=== PATIENT | female | born 1995 | race Two or more races ===

== ENCOUNTER 2018-07-17 17:19 | Inpatient (IN) | payer OTHER ==
--- OUTSIDE RECORDS SUMMARY | 2018-07-17 17:45 | XMS REPORT | Continuity of Care Document ---
:1995 External Reference #:[id number] Author Name Chris Munoz M.D. Address [address] [place] [address] Care Team Providers Name Role Phone [facility] Care Team Information Lyft Driver Unavailable [facility] Primary Care Physician Unavailable Payers Type Date Identification Numbers Payment Provider Subscriber Policy Number: [id number] Frederick Moran PayID: [id number] [address] [place] [address] Advance Directives Description No Information Available Problems Description No Information Family History Date Family Member(s) Problem(s) Comments Father Torn Retina Mother No Current Problems Mother High BP Social History Type Date Description Comments Sex Unknown ETOH Use Occasionally consumes hasnt the last 2 months alcohol Tobacco Use Start: Unknown Patient has never smoked Smoking Status Reviewed: 07/17/18 Patient has never smoked Allergies, Adverse Reactions, Alerts Description No Known Drug Allergies Medications Medication Date Status Form Strength Qnty SIG Indications Ordering Provider Sertraline HCL 0 Active Tablets 100mg Unknown 000 Colace 0 Active Capsules 100mg Unknown 000 Vitamin D Active Tablets 1000Unit take one Unknown 000 capsule/t ablet daily by mouth Calcium 500+D 0 Active Tablets 500-200mg-U Unknown 000 nit Probiotic 0 Active Capsules as needed Unknown 000 Immunizations Description No Information Available Vital Signs Date Vital Result Comment 07/17/2018 3:10pm Intraocular Pressure Right Eye 13 mmHg Intraocular Pressure Left Eye 12 mmHg Results Description No Information Available Procedures Date Code Description Status 07/17/2018 28907 Ophthalmoscopy Initial Completed 07/17/2018 58832 Oct, Optic Nerve Completed 07/17/2018 05721 Visual Field Exam Extended, Unilateral Or Bilateral Completed 07/17/2018 04133 Sensorimotor Examination W/Mult Measurements Ocular Completed Deviation 07/17/2018 91421 Eye Exam New Comprehensive Completed Encounters Description No Information Available Plan of Treatment No Information Available
[2018-07-17 18:31] LABS: Hematocrit 44 % (35-47); Hemoglobin 14.7 g/dl (12.0-16.0); Mean Corpuscular HGB Conc 34 g/dl (31-36); Mean Corpuscular Hemoglobin 29 pg (27-31); Mean Corpuscular Volume 85 fL (80-97); Mean Platelet Volume 7.8 fL (7.4-10.4); Platelet Count 303 10^3/ul (150-450); Red Blood Count 5.16 10^6/ul (4.00-5.40); Red Cell Distribution Width 15 % (10.5-15); White Blood Count 9.4 10^3/ul (3.5-10.8)
--- NOTE | 2018-07-17 18:42 | ED ---
Dizziness - HPI Summary HPI Summary: The pt is a 22 y/[facility]o intermittent diplopia since yesterday. She notes HAs (since 2 months ago) , dizziness (for 1 week), tinnitus (resolved), light sensitivity, mild back pain, neck pain and unstable gait. She was referred by her neurologist and drill hand to the ED for an admission to r/o a pseudo tumor. She denies PE, blood clots and ear pressure. The aching pain is rated 4/10 in severity. She took Tylenol and Meclizine at09: 00 hrs to no relief. Home Medications Medication Instructions Recorded Confirmed Type Calcium Carb/Vitamin D3/Vit K1 3 tab PO DAILY 09/20/16 04/19/18 History [Viactiv 500-500-40 mg-Unt-Mcg] Cholecalciferol TAB* [Vitamin D 2,000 unit PO DAILY 09/20/16 04/19/18 History TAB*] Docusate CAP* [Colace Cap*] 100 mg PO DAILY 09/20/16 04/19/18 History L. Acidophilus/L. Bifidus 1 tab PO TID 09/20/16 04/19/18 History [Acidophilus-Bifidus Wafer] Mesalamine CAP(NF) [Pentasa(NF)] 4 tab PO BID 09/20/16 04/19/18 History Omeprazole CAP* [Prilosec CAP* 20 20 mg PO DAILY 09/20/16 04/19/18 History MG] Sertraline* [Zoloft*] 100 mg PO DAILY 09/20/16 04/19/18 History Norethindrone AC-Eth Estradiol 1 tab PO DAILY 04/19/18 04/19/18 History [08/27] - History Of Current Complaint Chief Complaint: EDDizziness Stated Complaint: HEADACHE/DOUBLE VISION Time Seen by Provider: 07/17/18 18:28 Hx Obtained From: Patient Onset/Duration: Gradually Timing: Constant Character: Dizzy Aggravating Factor(s): Nothing Alleviating Factor(s): Nothing Associated Signs And Symptoms: Positive: Tinnitus, Unsteady Gait, Visual Changes - Allergies/Home Medications Allergies/Adverse Reactions: Allergies Allergy/AdvReac Type Severity Reaction Status Date / Time No Known Allergies Allergy Verified 05/30/18 13:19 PMH/Surg Hx/FS Hx/Imm Hx Previously Healthy: No Endocrine/Hematology History: Denies: Hx Diabetes Cardiovascular History: Reports: Other Cardiovascular Problems/Disorders - Hx of Marian's granulomytosis, Denies: Hx Hypertension, Hx Pacemaker/ICD History: Denies: Hx Renal Disease Sensory History: Denies: Hx Hearing Aid Psychiatric History: Reports: Hx Anxiety Denies: Hx Panic Disorder - Cancer History Cancer Type, Location and Year: None reported - Surgical History Surgery Procedure, Year, and Place: LYMPH NODE REMOVED, 05/20 CYST ON EAR, 06/21 CYST ON NECK, 11/21 CYST. Infectious Disease History: No Infectious Disease History: Denies: Traveled Outside the [place] in Last 30 Days - Family History Known Family History: Negative: Cardiac Disease, Hypertension, Diabetes - Social History Occupation: Student Lives: Dormitory/Roommates Alcohol Use: Rare Substance Use Type: Reports: None Smoking Status (MU): Never Smoked Tobacco Review of Systems Constitutional: Other - Positive: Dizziness,unstable gait Eyes: Negative - Ear pressure Positive: Photophobia, Diplopia, Other - Positive: Tinnitus, light sensitivity ENT: Other - Positive: Neck pain Cardiovascular: Negative - Blood clots Musculoskeletal: Other - Positive: Mild back pain Positive: Headache All Other Systems Reviewed And Are Negative: Yes Physical Exam - Summary Physical Exam Summary: Constitutional: Well-developed, Well-nourished, Alert. (-) Distressed Skin: Warm, Dry HENT: Normocephalic; Atraumatic Eyes: Conjunctiva normal. Funduscopic exam is limited Neck: Musculoskeletal ROM normal neck. (-) JVD, (-) Stridor, (-) Tracheal deviation Cardio: Rhythm regular, rate normal, Heart sounds normal; Intact distal pulses; The pedal pulses are 2+ and symmetric. Radial pulses are 2+ and symmetric. (-) Murmur Pulmonary/Chest wall: Effort normal. (-) Respiratory distress, (-) Wheezes, (-) Rales Abd: Soft, (-) epigastric tenderness, (-) Distension, (-) Guarding, (-) Rebound Musculoskeletal: (-) Edema Lymph: (-) Cervical adenopathy Neuro: Alert, Oriented x3 Psych: Mood and affect Normal Triage Information Reviewed: Yes Vital Signs On Initial Exam: Initial Vitals Temp Pulse Resp BP Pulse Ox 98.8 F 84 16 143/89 98 12/10/18 17:25 07/17/18 17:25 07/17/18 17:25 07/17/18 17:25 07/17/18 17:25 Vital Signs Reviewed: Yes Diagnostics - Vital Signs Vital Signs Temp Pulse Resp BP Pulse Ox 07/17/18 17:25 98.8 F 84 16 143/89 98 - Laboratory Lab Results: Lab Results 07/17/18 Range/Units 18:16 WBC 9.4 (3.5-10.8) 10^3/ul RBC 5.16 (4.00-5.40) 10^6/ul Hgb 14.7 (12.0-16.0) g/dl Hct 44 (35-47) % MCV 85 (80-97) fL MCH 29 (27-31) pg MCHC 34 (31-36) g/dl RDW 15 (10.5-15) % Plt Count 303 (150-450) 10^3/ul MPV 7.8 (7.4-10.4) fL Result Diagrams: 07/18/18 05:58 07/18/18 05:58 Lab Statement: Any lab studies that have been ordered have been reviewed, and results considered in the medical decision making process. - Radiology Head MRI Radiology Interpretation Completed By: Radiologist Summary of Radiographic Findings: IMPRESSION: Normal anatomic asymmetry versus thrombus left transverse sinus. Remaining dural sinuses are normal. The ED physician reviewed this radiology report. Brain/Orbits MRI Radiology Interpretation Completed By: Radiologist Summary of Radiographic Findings: IMPRESSION: Ectopic posterior pituitary lobe. No masses or acute infarcts. The ED physician reviewed this radiology report. Dizzy Course/Dx - Course Course Of Treatment: A 22 year-old F presents to the ED with a CC of intermittent diplopia since yesterday. She notes HAs (since 2 months ago) , dizziness ( for 1 week), tinnitus (resolved), light sensitivity, mild back pain , neck pain and unstable gait. She was referred by her neurologist and drill hand to the ED for an admission to r/o a pseudo tumor. She denies PE , blood clots and ear pressure. A physical exam is unremarkable. A funduscopic exam is limited. A brain MRI reveals normal anatomic asymmetry versus thrombus left transverse sinus. Remaining dural sinuses are normal. 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 No masses or acute infarcts. Dr. Lanie Pérez- hospitalist agreed to admit the pt. Patient will be admitted with a final Dx of papillary edema. Pt is agreeable with this plan. Allergies noted. - Diagnoses Provider Diagnoses: Optic papilla edema - Provider Notifications Discussed Care Of Patient With: Carol Ann Campos - Neurologist Time Discussed With Above Provider: 18:35 Instructed by Provider To: Other - Dr. Campos recommended that the lumbar punctures be done in the morning as it could obscure the images given the subacute nature of the complaint. 19:20- Dr. Lanie Pérez, agreed to admit the pt. 20:48- Dr. Marquez (radiologist) reports that imaging revealed asymmetry of the venous sinuses. Discharge - Sign-Out/Discharge Documenting (check all that apply): Patient Departure - Admit All imaging exams completed and their final reports reviewed: Yes - Discharge Plan Condition: Stable Disposition: ADMITTED TO [facility] - Billing Disposition and Condition Condition: STABLE Disposition: Admitted to [facility] - Attestation Statements Document Initiated by Janiee: Yes Documenting Scribe: Katie Carbone Provider For Whom Fadumo is Documenting (Include Credential): Dr. Joseph Ashford MD Scribe Attestation: Katie Reynolds , scribed for Dr. Joseph Ashford MD on 07/19/18 at 1131. Scribe Documentation Reviewed: Yes Provider Attestation: The documentation as recorded by the Katie anderson accurately reflects the service I personally performed and the decisions made by , Dr. Joseph Ashford MD Status of Scribe Document: Viewed
[2018-07-17 18:55] LABS: EGFR Non-African American 127.5 (>60)
[2018-07-17] MEDS ORDERED: Melatonin 3 MG TAB PO PRN (20:01)
[2018-07-17 20:07] LABS: Urine Appearance Cloudy; Urine Blood Negative (Negative); Urine Color Straw; Urine Ketones Negative (Negative); Urine Protein Negative (Negative); Urine Red Blood Cell Trace(0-2/hpf) (Absent); Urine Specific Gravity 1.005 (1.010-1.030); Urine Urobilinogen Negative (Negative); Urine White Blood Cell Trace(0-5/hpf) (Absent)
--- NOTE | 2018-07-17 20:07 | ADMNOTE ---
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 pt has chronic headache for two months started to feel woozy for 1-2 day which later progressed to have diplopia for one day -- -> went to see optho. optho called neuro to see pt in am for LP. pt subsequently went for mrv of orbits and brain ---> radiology leaned towards to normal asymmetrt of the sinuses instead of thrombus. 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 hx of left neck lymph node excisicion at age of 2 months old anxiety on zoloft possible vit d def social hx no cig no etoh no ivda currently is a bio student at [employer] htn Review of Systems - Measurements Intake and Output: Intake and Output Last 24 Hours 07/15/18 07/16/18 07/17/18 07/18/18 06:59 06:59 06:59 06:59 Weight 130 lb pertinent as per hpi - Review of Systems General Comments: pertinent as per hpi Objective Active Medications: Acetaminophen (Tylenol Tab*) 650 mg PO Q6H PRN PRN Reason: HEADACHE/PAIN Cholecalciferol (Vitamin D Tab*) 2,000 units PO DAILY MELIA Docusate Sodium (Colace Cap*) 100 mg PO DAILY [facility] Melatonin (Melatonin) 3 mg PO BEDTIME PRN; Protocol PRN Reason: SLEEP Stop: 07/20/18 20:00 Non-Formulary Medication (Calcium Carb/Vitamin D3/Vit K1 [Viactiv Soft Chew]) 3 tab PO DAILY MELIA Non-Formulary Medication (L. Acidophilus/L. Bifidus [Acidophilus-Bifidus Wafer] ) 1 tab PO TID MELIA Sertraline HCl (Zoloft*) 100 mg PO DAILY MELIA Vital Signs - 8 hr 07/17/18 17:25 Temperature 98.8 F Pulse Rate 84 Respiratory 16 Rate Blood Pressure 143/89 (mmHg) O2 Sat by Pulse 98 Oximetry Oxygen Devices in Use Now: None Appearance: nad Eyes: No Scleral Icterus Ears/Nose/Mouth/Throat: NL Teeth, Lips, Gums, Clear Oropharnyx, Mucous Membranes Moist Neck: NL Appearance and Movements; NL JVP, Trachea Midline, No Thyroid Enlargement, Masses Respiratory: Symmetrical Chest Expansion and Respiratory Effort, Clear to Auscultation Cardiovascular: NL Sounds; No Murmurs; No JVD, RRR Abdominal: NL Sounds; No Tenderness; No Distention, No Hepatosplenomegaly Extremities: No Edema, No Clubbing, Cyanosis, - - able to raise all four exs with no restriction Skin: No Rash or Ulcers Neurological: Alert and Oriented x 3, NL Sensation, NL Muscle Strength and Tone Result Diagrams: 07/17/18 18:16 07/17/18 18:16 Additional Lab and Data: Lab Results 07/17/18 Range/Units 18:16 WBC 9.4 (3.5-10.8) 10^3/ul RBC 5.16 (4.00-5.40) 10^6/ul Hgb 14.7 (12.0-16.0) g/dl Hct 44 (35-47) % MCV 85 (80-97) fL MCH 29 (27-31) pg MCHC 34 (31-36) g/dl RDW 15 (10.5-15) % Plt Count 303 (150-450) 10^3/ul MPV 7.8 (7.4-10.4) fL EKG Data: ekg ns no acute st t changes seen Assess/Plan/Problems-Billing Assessment: this is a 22 yr old wf with hx of angelika's granuloma presented to er with two months duration of intractable headache which progressed to diplopia for one day ---> went to see optho outpt and was sent in due to papillaedema ---> pt can see large prints but will have blurry vision seeing small prints mrv showed asymmetry of the sinuses as per radiology - Patient Problems (1) Papilloedema, unspecified Current Visit: Yes Status: Acute Code(s): H47.10 - UNSPECIFIED PAPILLEDEMA SNOMED Code(s): 359169736 Comment: ? psudotumor cerebri ---> pt is going to see neuro in am for lp (2) Marian's disease, pulmonary Current Visit: Yes Status: Acute Code(s): M31.30 - MARIAN'S GRANULOMATOSIS WITHOUT RENAL INVOLVEMENT SNOMED Code(s): 281451425 Comment: stable continue to moniter (3) Headache Current Visit: Yes Status: Acute Code(s): R51 - HEADACHE SNOMED Code(s): 55306114 Comment: pt does not want opiods and would like only tylneol for her headache ordered
[2018-07-17] MEDS ORDERED: Gadoteridol* (CONTRAST) 279.3 MG/ML 10 ML IV ONE (20:53)
[2018-07-17] MEDS ORDERED: MESALAMINE 500 MG PO SCH (21:00)
[2018-07-17] MEDS: Lactobacillus Acidophilus* 1 TAB PO SCH (22:28)
[2018-07-17] MEDS: Acetaminophen TAB* 325 MG PO PRN (22:29)
[2018-07-17] MEDS: Sertraline* 100 MG TAB PO SCH (22:50)
[2018-07-18 06:27] LABS: ABS Basophils 0 10^3/ul (0-0.2); ABS Eosinophils 0.4 10^3/ul (0-0.6); ABS Lymphocytes 4.2 10^3/ul (1.0-4.8); ABS Monocytes 1.3 10^3/ul (0-0.8); ABS Neutrophils 3.3 10^3/ul (1.5-7.7); ABS Nucleated RBC 0 10^3/ul; Eosinophil % 4.1 %; Hematocrit 39 % (35-47); Hemoglobin 13.3 g/dl (12.0-16.0); Lymphocyte % 45.1 %; Mean Corpuscular HGB Conc 34 g/dl (31-36); Mean Corpuscular Hemoglobin 29 pg (27-31); Mean Corpuscular Volume 85 fL (80-97); Mean Platelet Volume 7.8 fL (7.4-10.4); Nucleated Red Blood Cells % 0.1; Platelet Count 297 10^3/ul (150-450); Red Blood Count 4.62 10^6/ul (4.00-5.40); Red Cell Distribution Width 15 % (10.5-15); White Blood Count 9.3 10^3/ul (3.5-10.8)
[2018-07-18 06:42] LABS: INR 0.97 (0.77-1.02)
[2018-07-18 07:41] LABS: EGFR Non-African American 127.5 (>60)
[2018-07-18] MEDS: Acetaminophen TAB* 325 MG PO PRN ×3 (08:15→22:07)
[2018-07-18] MEDS: Lactobacillus Acidophilus* 1 TAB PO SCH ×3 (08:16→22:07)
[2018-07-18] MEDS: Calcium/Vitamin D TAB 250/125* TAB PO SCH (08:16)
[2018-07-18] MEDS: Cholecalciferol TAB* 1000 UNITS PO SCH (08:16)
[2018-07-18] MEDS: Docusate CAP* 100 MG PO SCH (08:17)
[2018-07-18] MEDS ORDERED: Omeprazole CAP* 20 MG PO SCH (09:00)
[2018-07-18] MEDS ORDERED: Lidocaine 1%* 5 ML VIAL INJ ONE (09:09)
[2018-07-18 10:27] LABS: Body Fluid Source Cerebral Spinal
[2018-07-18] MEDS: acetaZOLAMIDE TAB* 250 MG PO SCH ×2 (11:58→22:07)
[2018-07-18] MEDS: ACYCLOVIR IVPB SCH ×2 (12:30→19:33)
[2018-07-18] MEDS: NS 0.9% IVPB SCH ×2 (12:30→19:33)
--- NOTE | 2018-07-18 13:29 | PN ---
Subjective Date of Service: 07/18/18 Interval History: reports that she continues to have double vision and headache. reports that headache is dull and throbbing in nature. States that the vision improves when she closes 1 eye. Continues to feel dizzy and off balance. Denies nausea or vomiting. Denies chest pain or shortness of breath. Family History: Unchanged from Admission Social History: Unchanged from Admission Past Medical History: Unchanged from Admission Objective Active Medications: Acetaminophen (Tylenol Tab*) 650 mg PO Q6H PRN PRN Reason: HEADACHE/PAIN Last Admin: 07/18/18 08:15 Dose: 650 mg Acetazolamide (Diamox Tab*) 250 mg PO BID [facility] Last Admin: 07/18/18 11:58 Dose: 250 mg Calcium/Vitamin D (Oscal D Tab 250/125*) 1 tab PO DAILY [facility] Last Admin: 07/18/18 08:16 Dose: 1 tab Cholecalciferol (Vitamin D Tab*) 2,000 units PO DAILY [facility] Last Admin: 07/18/18 08:16 Dose: 2,000 units Docusate Sodium (Colace Cap*) 100 mg PO DAILY [facility] Last Admin: 07/18/18 08:17 Dose: 100 mg Acyclovir Sodium 550 mg/ (Sodium Chloride) 111 mls @ 111 mls/hr IVPB Q8H [facility] Last Admin: 07/18/18 12:30 Dose: 111 mls/hr Lactobacillus Rhamnosus (Lactobacillus Acidophilus*) 1 tab PO TID [facility] Last Admin: 07/18/18 12:33 Dose: 1 tab Melatonin (Melatonin) 3 mg PO BEDTIME PRN; Protocol PRN Reason: SLEEP Stop: 07/20/18 20:00 Sertraline HCl (Zoloft*) 100 mg PO BEDTIME [facility] Last Admin: 07/17/18 22:50 Dose: 100 mg Vital Signs - 8 hr 07/18/18 07/18/18 07/18/18 07:33 08:00 11:15 Temperature 98.0 F 97.5 F Pulse Rate 79 85 Respiratory 16 16 16 Rate Blood Pressure 144/73 137/40 (mmHg) O2 Sat by Pulse 99 94 Oximetry Oxygen Devices in Use Now: None Appearance: alert and oriented x 3 , no acute distress Eyes: No Scleral Icterus Ears/Nose/Mouth/Throat: Clear Oropharnyx, Mucous Membranes Moist Neck: NL Appearance and Movements; NL JVP, Trachea Midline Respiratory: Symmetrical Chest Expansion and Respiratory Effort, Clear to Auscultation Cardiovascular: NL Sounds; No Murmurs; No JVD, No Edema Abdominal: NL Sounds; No Tenderness; No Distention Extremities: No Edema, No Clubbing, Cyanosis Skin: No Rash or Ulcers Neurological: Alert and Oriented x 3 Nutrition: Taking PO's Result Diagrams: 07/18/18 05:58 07/18/18 05:58 Additional Lab and Data: Lab Results 07/17/18 Range/Units 18:16 WBC 9.4 (3.5-10.8) 10^3/ul RBC 5.16 (4.00-5.40) 10^6/ul Hgb 14.7 (12.0-16.0) g/dl Hct 44 (35-47) % MCV 85 (80-97) fL MCH 29 (27-31) pg MCHC 34 (31-36) g/dl RDW 15 (10.5-15) % Plt Count 303 (150-450) 10^3/ul MPV 7.8 (7.4-10.4) fL Microbiology and Other Data: Microbiology 07/18/18 10:00 CSF Gram Stain (Tube 3) - Final Cerebral Spinal Fluid EKG Data: ekg ns no acute st t changes seen Assess/Plan/Problems-Billing Assessment: this is a 22 yr old wf with hx of angelika's granuloma presented to er with two months duration of intractable headache which progressed to diplopia for one day ---> went to see optho outpt and was sent in due to papillaedema ---> pt can see large prints but will have blurry vision seeing small prints mrv showed asymmetry of the sinuses as per radiology - Patient Problems (1) Increased intracranial pressure Current Visit: Yes Status: Acute Code(s): G93.2 - BENIGN INTRACRANIAL HYPERTENSION SNOMED Code(s): 830402682 Comment: - LP showed opening pressure of 43 - neurology ordered diamox - will continue - monitor for neuro changes - neurology added acyclovir - will continue to cover viral meningitis- poss. r/ t hsv- cultures pending - Could also be related to chronic meningitis (2) Headache Current Visit: Yes Status: Acute Code(s): R51 - HEADACHE SNOMED Code(s): 38421807 Comment: - will continue supportive care and tylenol as needed for pain - suspect this could be related to increased ICP - will give diamox as ordered (3) Marian's disease, pulmonary Current Visit: Yes Status: Acute Code(s): M31.30 - MARIAN'S GRANULOMATOSIS WITHOUT RENAL INVOLVEMENT SNOMED Code(s): 369219875 Comment: stable continue to monitor (4) DVT prophylaxis Current Visit: Yes Status: Acute Code(s): LVQ0540 - SNOMED Code(s): 398413805 Comment: - Encourage ambulation. - SCDs while in bed. (5) Full code status Current Visit: Yes Status: Acute Code(s): Z78.9 - OTHER SPECIFIED HEALTH STATUS SNOMED Code(s): 486974369 Status and Disposition: discharge home when medically stable
--- NOTE | 2018-07-18 15:26 | CONS ---
NEUROLOGY CONSULTATION NOTE: DATE OF CONSULT: 07/18/18 PRIMARY PROVIDER: Joseph Asfhord MD REASON FOR CONSULT: Subacute headache and double vision. CHIEF COMPLAINT: Headache, double vision. HISTORY OF PRESENT ILLNESS: Ms. 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 The patient was on oral contraceptive pills, specifically from March and she discontinued the medication in May. Around that time, the patient began developing symptoms of headaches. The headaches were constant. The location of the headaches were mostly in the bifrontal region, but radiated to the occipital region occasionally. The headaches seem to be worse when lying flat. She was taking Tylenol 650 mg every 4 to 6 hours for the headache. Tylenol seemed to decrease the headache intensity from 8 to 4/10. She had some photophobia and initially complained of nausea. Over the last 1 week, the patient was feeling "oozy and lightheaded." When she walks around, she was feeling off balance including walking a straight line. Her headache seems to have started around 05/19/18, and the gait abnormality seems to have started last week. Last 07/16/18, she developed binocular, vertical diplopia that resolved with 1 eye closure. This was new. She was taking a genetic test with 1 eye closed the whole time. She complains of pulsatile tinnitus, the right more than the left, since May 2018. The patient was evaluated by a neurologist in [place], [place], approximately 2 months ago. The workup included an MRI of the brain without contrast and the orbits, but did not reveal any focal mass lesions or abnormalities. She was evaluated by Dr. Chris Munoz yesterday, who noticed that the patient has bilateral mild papilledema. PAST MEDICAL HISTORY: Marian granulomatosis, anxiety, constipation. 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 MEDICATIONS: 1. Vitamin D supplements 2000 units p.o. daily. 2. Acidophilus 1 tablet p.o. t.i.d. 3. Calcium 3 tablets p.o. daily. 4. Omeprazole 20 mg p.o. daily. 5. Zoloft 100 mg p.o. daily. 6. Norethindrone, estradiol, June FE 1 tablet p.o. daily. She is no longer taking this medication. ALLERGIES: No known drug allergies. FAMILY HISTORY: Father is healthy. Mother has cholesterol. Grandfather also has high cholesterol. SOCIAL HISTORY: She denied tobacco use. She drinks alcohol occasionally, but has not consumed alcohol over the last 2 months. She does have 1 older brother. She denied drug use. REVIEW OF SYSTEMS: A 14-point review of systems was obtained and otherwise negative except for what was mentioned in the HPI. PHYSICAL EXAM: Vitals: Temperature 98.0, pulse rate of 79, respiratory rate of 16, oxygen saturation of 99%, blood pressure 144/73. General: Well- nourished, well-developed female, in no acute distress. Head: Normocephalic, atraumatic without any obvious abnormality. Eyes: Conjunctivae/corneas are clear. Neck is supple and symmetrical with no carotid bruits. Lungs are clear to auscultation bilaterally. Cardiovascular: Regular rate and rhythm with normal S1, S2. Extremities: Normal range of motion with no cyanosis. Skin: No skin lesions or lacerations. Psych: Affect is broad and normal mood. Easy to establish rapport. Neurological Examination: Mental Status: Awake, alert, and oriented to person, place, time, and general circumstances. Speech and language including expression, naming, repetition, and comprehension were assessed and found to be normal. Cranial Nerves: Normal confrontation testing bilaterally. She does have diplopia, vertigo, there is also 1 eye closure. She did not have any clear nystagmus, but does have slight blurring of the disc margin on undilated funduscopic examination. Sensation is intact in the forehead , cheeks, and jaw region bilaterally. There is no facial droop. She is able to hear throughout the history process, symmetrical palate elevation. There is normal strength against resistance. Tongue is symmetrical and midline with no atrophy or fasciculation. Motor: No abnormal movements or pronator drift. Normal bulk and tone throughout. No fasciculation. She has 5/5 strength throughout the upper and lower extremities, distally and proximally. Reflexes: Right/left, brachioradialis 2/2, biceps 2/2, triceps 2/2, patella 3/3, ankle 2 /3+, plantar flexor/flexor. Sensation is intact to light touch throughout. Normal vibration at the toes and proprioception at the great toes. Coordination : Normal [id number] and rapid alternating movement. Gait has narrow base but unsteady, swaying towards the right and left. LABS, IMAGING, AND OTHER DIAGNOSTIC TESTING: WBC 9.3, hemoglobin 13.3, hematocrit 39, platelet count of 297. INR is 0.97. Sodium 139, potassium 4.0, chloride 106, carbon dioxide 24, BUN of 19, creatinine is 0.60. C-reactive protein less than 1. Urinalysis, no pyuria. MRI of the brain and orbit with and without contrast were obtained. I personally reviewed these images as well as I reviewed them with Dr. Molina, Neuroradiology. 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 There may have been slight enhancement of the retro-orbital optic nerve, but this is nonspecific and unclear on the MRI testing. An MRV was completed on 07/17/18 without contrast. It was initially reported as there is normal anatomical asymmetry versus thrombus in the left transverse sinus. Remaining dural sinuses are normal. I personally reviewed this image with Dr. Molina on 07/18/18. From his evaluation, there is no clear thrombus in the left transverse sinus and it may be a congenital narrowing. However, Dr. Molina did mention that there may have been stenosis in the right transverse sinus. No thrombus was visualized. 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 A lumbar puncture was completed at bedside after obtaining consent from the patient as well as with a female family medicine chair. Her opening pressure was 43 cmH20. ASSESSMENT AND RECOMMENDATIONS: Ms. Denis Moran is a 22-year-old female with a history of Marian granulomatosis, who had a 2-month history of nonspecific headache, 1-week history of gait imbalance, and 2-day history of intermittent binocular vertical diplopia. MRI of the brain, orbitals with and without contrast did not show any mass lesions or demyelinating changes. 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 I personally reviewed these images with Dr. Molina. Her lumbar puncture was diagnostic and slightly therapeutic actually as her opening pressure was 43 cmH20, and following the procedure, her headaches had subsided. Idiopathic intracranial hypertension. The patient has papilledema on examination, normal neurological examination except for the papilledema and subjective diplopia, neuro imaging that shows normal brain parenchyma without evidence of hydrocephalus, mass, structural lesion, or meningeal enhancement. We are waiting for the CSF composition, but she did have an elevated opening pressure. All these findings meet the diagnostic criteria for idiopathic intracranial hypertension or pseudotumor cerebri. However, it is important to note that cerebral venous thrombosis in particular may have a very similar clinical presentation to idiopathic intracranial hypertension. Also we have to wait for the CSF analysis to make sure there is no evidence of an underlying chronic infection or inflammation. We had agreed to start treatment for IIH, repeat an MRV in 2-3 weeks to make sure she has absolutely no evidence of transverse sinus thrombosis. The patient agreed. I have started her on acetazolamide 250 mg p.o. twice daily. We suspect that she has IIH in the setting of recent exposure to oral contraceptive drug use. She will follow up with Neurology in 3 weeks before she goes off [place] study abroad [place]. We will need to have an MRV with and without contrast of the head before she leaves the country. I also had sent out the CSF to check her cell count, culture , glucose, total protein, and oligoclonal bands, although I do not think she has demyelinating disease. Her hyperreflexia on examination may reflect just elevated intracranial pressure. The patient is planning to follow up with her neurologist in [place]. TIME SPENT: I spent a total of 90 minutes and greater than 50% was spent directly reviewing the medical chart, obtaining history, examining the patient, reviewing imaging with Dr. Molina, education and counseling, and discussing the treatment plan as mentioned above. [id number]/[facility] #: [id number] ADDENDUM 1530 on 07/18/2018 CSF analysis shows elevated protein and WBC. This is not typical for idiopathic intracranial hypertension. Therefore, evaluation for chronic meningitis or underlying vasculitis related to Marian's granulomatosis should be considered. It would not be atypical for her to have underlying primary vasculitis confined to the [employer] given her history. The following was done after the CSF results: - Started the patient on Acyclovir 10 mg /kg three times daily IV. I doubt that she has chronic HSV as it would have been seen on MRI and the patient would be more clinically ill. We can discontinue the acyclovir once the PCR for HSV 1 and 2 are negative. - Ordered cryptococcus antigen, enterovirus, VDRL, DARELL in CSF, and paraneoplastic panel. - Given the degree of hyperreflexia, the C and T spine MRI with and without contrast was obtained to evaluate for vasculitic vs demyelinating disease in the spine. - Discussed the case with Dr. Squires who was kind enough to be consulted on the case - Spoke to Dr. Idania Pleitez (patient's neurologist in [place]). Dr. Webb was updated but she had nothing else to add at this point. - Waiting on a call back from Dr. Junito Luong, patient's slat pickler, to see if there is anything else we can add to her current work-up. Carol Ann Campos MD [facility]
[2018-07-18] MEDS ORDERED: Gadoteridol* (CONTRAST) 279.3 MG/ML 10 ML IV ONE (19:35)
--- NOTE | 2018-07-18 20:02 | CONS ---
CONSULTATION REPORT: DATE OF CONSULT: 07/18/18 REQUESTING PHYSICIAN: Dr. Campos. CONSULTING SERVICE: Infectious Disease. REASON FOR CONSULT: Meningitis. IMPRESSION: 1. Seven weeks of severe debilitating headache, more recent diplopia. MRI unremarkable. Spinal fluid shows 115 white cells, 88% lymphocytes, protein 102 , glucose 40. Gram stain, no organisms. Taken together, she has a chronic meningitis, she is well appearing and so I think infectious etiology is less likely, though the infectious differential diagnosis in the setting of Rituxan therapy does include cryptococcal meningitis. Occasionally, Lyme will cause a chronic meningitis, though she had a negative Lyme antibody about a week and half ago, so that seems less likely. Bacterial including listeria consideration , but again she is fairly well appearing and no fever. Viral considerations this time of year include enterovirus, though I think less likely to cause a chronic process. Other infectious viral considerations are the arboviruses given her outdoor exposure in the later summer, early fall; West Nile would be a consideration, although I think less likely to cause a chronic meningitis. Noninfectious including granulomatosis with polyangiitis, which she has, apparently can cause a chronic meningitis; medication related, she had been on ibuprofen though apparently stopped that a couple weeks before coming to the hospital. 2. Granulomatosis with polyangiitis. Previous corticosteroid therapy and more recently rituximab. RECOMMENDATIONS: CSF cryptococcal antigen, herpes virus PCR, we will add an enterovirus PCR, we will add a serum Lyme and I would hold on further antibiosis at this point. She will have a consultation with Rheumatology as well. HISTORY OF PRESENT ILLNESS: This is a 22-year-old woman with granulomatosis with polyangiitis, mainly pulmonary involvement, diagnosed by biopsy and treated first with corticosteroids and then by rituximab since last September, most recently end of the summer, early fall was her last dose. In May, she developed severe headache, which was little bit debilitating. It persisted over 6 to 8 weeks. Some of those times, she could not get out of bed. She had no fevers, chills, or sweats. Her appetite was decreased a little bit. Her weight had been steady. Because of the severe headache and then double vision over the weekend while taking a final exam, she came to the ER yesterday. She had also had a neurologic evaluation as an outpatient a couple of weeks ago including negative brain imaging and laboratory evaluation showed includes a negative Lyme antibody and normal CRP. In the ER here, she had an MRI brain, which is unremarkable. Lumbar puncture done by Dr. Campos today with results as above. She has had no fevers here. She has been eating and drinking fine. Appetite is reasonable. No fevers, chills, or sweats now. She has been walking in the hallways, continues to have double vision. The headache has a little bit eased with some of the medicines she is having here. Dr. Campos did note elevated opening pressure when he did the lumbar puncture. PAST MEDICAL HISTORY: 1. Granulomatosis with polyangiitis, primarily pulmonary involvement, treated with Rituxan. 2. Branchial cyst, right neck, excised in 2013. 3. Anxiety. ALLERGIES: No known drug allergies. MEDICATIONS: 1. Tylenol. 2. Acetazolamide. 3. Cholecalciferol. 4. Calcium. 5. Vitamin D. 6. Lactobacillus. 7. Melatonin. 8. Sertraline. 9. Acyclovir every 8 hours. SOCIAL HISTORY: She is from [facility]. She has lived in [place] as a high school student. 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 No travel or sick contacts. Does not have a roommate. No pets. Did spend some time over the summer at a camp in [facility]. No tick bites detected recently. Does not spend much time outdoors here. FAMILY HISTORY: Brother with Babesia and no recurrent infections. REVIEW OF SYSTEMS: All negative except as noted above to a 14-point review. PHYSICAL EXAM: Vital Signs: Temperature 36.4, heart rate 80, respiratory rate 16, blood pressure 137/40, oxygen saturation 94% on room air. In general, she is awake, not in distress. Neurologic: She is oriented x3. Follows all commands. Gait is normal. Moves all her extremities. HEENT: There is no conjunctival hemorrhage. Oropharynx without lesions. Neck is supple without mass. Heart is regular rate and rhythm without murmurs, rubs, or gallops. Lungs have decreased breath sounds at the left base without wheeze or rale. Abdomen: Soft, nontender, nondistended. There are bowel sounds present. Lymph Nodes: There is no cervical, supraclavicular, inguinal, axillary, or epitrochlear lymphadenopathy. Skin: There is no rash or splinter hemorrhage. Musculoskeletal: There is no spine tenderness to palpation or joint synovitis. LABORATORY DATA: White blood cell count 9, sed rate 4. Creatinine is 0.6. HCG 0. CRP 0. Urinalysis shows leukocyte esterase trace. Please see impressions and recommendations as outlined above. Thank you for asking me to see Ms. Moran in consultation. [id number]/[facility] #: [id number] MTDD
[2018-07-18] MEDS: Sertraline* 100 MG TAB PO SCH (22:07)
[2018-07-19] MEDS: ACYCLOVIR IVPB SCH (04:33)
[2018-07-19] MEDS: NS 0.9% IVPB SCH (04:33)
[2018-07-19] MEDS: acetaZOLAMIDE TAB* 250 MG PO SCH ×2 (08:55→21:45)
[2018-07-19] MEDS: Acetaminophen TAB* 325 MG PO PRN ×3 (08:55→23:22)
[2018-07-19] MEDS: Lactobacillus Acidophilus* 1 TAB PO SCH ×3 (08:55→21:45)
[2018-07-19] MEDS: Cholecalciferol TAB* 1000 UNITS PO SCH (08:55)
[2018-07-19] MEDS: Calcium/Vitamin D TAB 250/125* TAB PO SCH (08:55)
[2018-07-19] MEDS: Docusate CAP* 100 MG PO SCH (08:55)
--- NOTE | 2018-07-19 09:20 | PN ---
Subjective Date of Service: 07/19/18 Length of Stay: 2 Days Neurology is following [facility] for the evaluation and management of headache. Interval History: The headache and double vision persist. Her headache is less today, 3/10 in severity. The pain is mostly bi-frontal but tolerable. She has mild photophobia. She is tolerating PO intake and slept well last night. She denied any focal weakness or paresthesia. She is tolerating acetazolamide. Review of Systems: Denied CP, SOB, or palpitations. Family History: Unchanged from Admission Social History: Unchanged from Admission Past Medical History: Unchanged from Admission Objective Active Medications: Acetaminophen (Tylenol Tab*) 650 mg PO Q6H PRN PRN Reason: HEADACHE/PAIN Last Admin: 07/19/18 08:55 Dose: 650 mg Acetazolamide (Diamox Tab*) 250 mg PO BID [facility] Last Admin: 07/19/18 08:55 Dose: 250 mg Calcium/Vitamin D (Oscal D Tab 250/125*) 1 tab PO DAILY [facility] Last Admin: 07/19/18 08:55 Dose: 1 tab Cholecalciferol (Vitamin D Tab*) 2,000 units PO DAILY [facility] Last Admin: 07/19/18 08:55 Dose: 2,000 units Docusate Sodium (Colace Cap*) 100 mg PO DAILY [facility] Last Admin: 07/19/18 08:55 Dose: 100 mg Acyclovir Sodium 550 mg/ (Sodium Chloride) 111 mls @ 111 mls/hr IVPB Q8H [facility] Last Admin: 07/19/18 04:33 Dose: 111 mls/hr Lactobacillus Rhamnosus (Lactobacillus Acidophilus*) 1 tab PO TID [facility] Last Admin: 07/19/18 08:55 Dose: 1 tab Melatonin (Melatonin) 3 mg PO BEDTIME PRN; Protocol PRN Reason: SLEEP Stop: 07/20/18 20:00 Sertraline HCl (Zoloft*) 100 mg PO BEDTIME [facility] Last Admin: 07/18/18 22:07 Dose: 100 mg Vital Signs 07/18/18 07/18/18 07/18/18 11:15 15:58 18:03 Temperature 97.5 F 98.7 F Pulse Rate 85 93 78 Respiratory 16 16 Rate Blood Pressure 137/40 98/55 125/65 (mmHg) O2 Sat by Pulse 94 96 99 Oximetry 12/06/2507/18/18 07/18/18 19:34 20:00 23:03 Temperature 97.9 F 97.7 F Pulse Rate 74 81 Respiratory 20 18 18 Rate Blood Pressure 107/63 102/55 (mmHg) O2 Sat by Pulse 99 97 Oximetry 07/19/18 07/19/18 07/19/18 02:46 07:45 08:00 Temperature 97.8 F 98.0 F Pulse Rate 71 78 Respiratory 18 16 16 Rate Blood Pressure 104/58 125/71 (mmHg) O2 Sat by Pulse 96 98 Oximetry Intake and Output Last 24 Hours 07/17/18 07/18/18 07/19/18 07/20/18 06:59 06:59 06:59 06:59 Intake Total 495 1020 Output Total 300 Balance 195 1020 Weight 130 lb 130 lb Intake: IV Fluids 15 60 NS (0.9%) 15 acyclovir 60 IVPB 320 acyclovir 200 Oral 480 640 Output: Urine 300 Other: Estimated Void Large # Bowel Movements 0 # Voids 0 Oxygen Devices in Use Now: None Neurology Exam: General: Well nourished and well appearing young female in no acute distress. HEENT: Normocephalic/atraumatic, sclera anicteric, mucous membranes moist Neck: Supple Chest: Clear to auscultation bilaterally Extremities: No clubbing, cyanosis, or edema Neurological Findings: Awake and oriented to self, place, and time. Speech: fluent without dysrhythmia, repetition intact Cranial Nerve: PERRL, EOM-I, with increase vertical diplopia when eyes are down and out R>L. She has a mild head tilt towards the left. Motor: s/s throughout, proximal and distal extremities x4 tone/bulk normal Sensation: intact to LT/PP bilaterally upper and lower extremities Deep Tendon Reflex: 2+ symmetric in the upper/lower extremities, Babinski - down going Finger to nose, rapid alternating movements intact without tremor, no dysdiadochokinesia Gait: intact with good arm swing and stride Result Diagrams: 07/18/18 05:58 07/18/18 05:58 Additional Lab and Data: Lab Results 07/17/18 Range/Units 18:16 WBC 9.4 (3.5-10.8) 10^3/ul RBC 5.16 (4.00-5.40) 10^6/ul Hgb 14.7 (12.0-16.0) g/dl Hct 44 (35-47) % MCV 85 (80-97) fL MCH 29 (27-31) pg MCHC 34 (31-36) g/dl RDW 15 (10.5-15) % Plt Count 303 (150-450) 10^3/ul MPV 7.8 (7.4-10.4) fL TSH: 0.87 Vitamin B12: 474 Microbiology and Other Data: Microbiology 07/18/18 10:00 CSF Gram Stain (Tube 3) - Final Cerebral Spinal Fluid Diagnostic Imaging: MRI brain/orbits with and without contrast- no acute intracranial abnormalities. There is no evidence of cortical T2-hyperintensities on MRI to suggest large vessel vasculitic disease. MRI C and T spine with and without contrast- no evidence of demyelinating lesions. EKG Data: ekg ns no acute st t changes seen Assessment/Plan Denis Moran is a 22-year-old female with granulomatosis with polyangiitis who presented with an 8 week history of headaches with recent associated symptoms of gait imbalance and recent diplopia (started last Tuesday). She was found to have an elevated opening CSF pressure with lymphocytic predominant pleocytosis with elevated protein. 1. Progressive chronic meningitis Clinically, she does not appear to have evidence of any chronic infectious etiology causing the meningitis. The concern here is the Marian's is causing the BRASS BUFFER symptoms. 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 This would be a diagnosis of exclusion since she does not seem to have any systemic manifestation at this time. She had pulmonary involvement in the past that seems to be in remission. Recommendations: - Discussed the case with Dr. Em who was kind enough to follow with us in the care of Denis - Obtaining CTAs will unlikely be negative given that she has no T2- hyperintensity on MRI to suggest a cortical involvement and any small vessel ischemia will not be seen on this imaging modality, or even with cerebral angiogram. - ?Trial of high dose pulse steroids to see if it helps relieve her headache and possible protect from worsening cranial neuropathy - Ordered the ANCA vasculitis panel - Pending HSV PCR and cryptococcus antigen. - Discontinued acyclovir with the recommendation of Dr. Squires as we don't suspect she has HSV encephalitis. - Continue acetazolamide 250 mg twice daily for elevated intracranial pressure. 2. 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 She also has head tilt towards the contralateral side. These are features of 4th nerve palsy which is most likely caused by pressure vs vasculitis process to the nerve. Ordered an eye patch for which she was instructed to change from one eye to another every 2 hours. 3. Hyperreflexia- improved after the LP. This was related to the increase in ICP. There is no evidence of demyelinating or vasculitis process in the C or T spine. 4. Hx of Granulomatosis with polyangiitis- pending further evaluation by Dr. Em. The patient and mother would like to go home and complete this work-up in [place] if possible. I informed the family that this will depend on the assessment by Dr. Em, but I don't see any objectives from the neurology standpoint. She would need to continue taking acetazolamide 250 mg twice daily. Time spent: 40 minutes reviewing the records, examining the patient, and discussing the treatment plan and recommendation as mentioned above. I will continue to follow.
[2018-07-19 15:38] LABS: CSF VDRL Negative (Negative)
--- NOTE | 2018-07-19 16:48 | PN ---
Subjective Date of Service: 07/19/18 Interval History: HOSPITALIST PROGRESS NOTE Patient seen and examined at bedside. Care reviewed and d/w France Schuler RN. She offers no new complaints. ALVAREZ and diplopia somewhat improved, denies N/V. Family History: Unchanged from Admission Social History: Unchanged from Admission Past Medical History: Unchanged from Admission Objective Active Medications: Acetaminophen (Tylenol Tab*) 650 mg PO Q6H PRN PRN Reason: HEADACHE/PAIN Last Admin: 07/19/18 08:55 Dose: 650 mg Acetazolamide (Diamox Tab*) 250 mg PO BID [facility] Last Admin: 07/19/18 08:55 Dose: 250 mg Calcium/Vitamin D (Oscal D Tab 250/125*) 1 tab PO DAILY [facility] Last Admin: 07/19/18 08:55 Dose: 1 tab Cholecalciferol (Vitamin D Tab*) 2,000 units PO DAILY [facility] Last Admin: 07/19/18 08:55 Dose: 2,000 units Docusate Sodium (Colace Cap*) 100 mg PO DAILY [facility] Last Admin: 07/19/18 08:55 Dose: 100 mg Lactobacillus Rhamnosus (Lactobacillus Acidophilus*) 1 tab PO TID [facility] Last Admin: 07/19/18 14:48 Dose: 1 tab Melatonin (Melatonin) 3 mg PO BEDTIME PRN; Protocol PRN Reason: SLEEP Stop: 07/20/18 20:00 Sertraline HCl (Zoloft*) 100 mg PO BEDTIME [facility] Last Admin: 07/18/18 22:07 Dose: 100 mg Vital Signs - 8 hr 07/19/18 07/19/18 11:44 15:44 Temperature 98.6 F 98.0 F Pulse Rate 72 74 Respiratory 16 18 Rate Blood Pressure 109/70 99/50 (mmHg) O2 Sat by Pulse 99 100 Oximetry Oxygen Devices in Use Now: None Appearance: Young lady lying in bed in NAD. Eyes: No Scleral Icterus Ears/Nose/Mouth/Throat: Mucous Membranes Moist Neck: Trachea Midline Respiratory: Symmetrical Chest Expansion and Respiratory Effort, Clear to Auscultation Cardiovascular: NL Sounds; No Murmurs; No JVD, RRR Neurological: Alert and Oriented x 3, NL Muscle Strength and Tone Result Diagrams: 07/18/18 05:58 07/18/18 05:58 Diagnostic Imaging: MRI brain/orbits with and without contrast- no acute intracranial abnormalities. There is no evidence of cortical T2-hyperintensities on MRI to suggest large vessel vasculitic disease. MRI C and T spine with and without contrast- no evidence of demyelinating lesions. Assess/Plan/Problems-Billing Assessment: Ms Moran is a 22yo F with granulomatosis with polyangiitis who presented with an 8 week history of headaches with recent associated symptoms of gait imbalance and recent diplopia, found to have an elevated opening CSF pressure with lymphocytic predominant pleocytosis with elevated protein. - Patient Problems (1) Chronic meningitis Comment: - Neuro and ID input appreciated - no evidence of any chronic infectious etiology so far. 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 - Follow ANCA, HSV PCR and cryptococcus antigen. - Acyclovir d/c as per Dr. Squires's recommendation. - Continue acetazolamide 250 mg twice daily for elevated intracranial pressure. - May benefit of high dose IV steroids - Rheumatology consult requested with Dr Em. 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 Recommended eye patch for which she was instructed to change from one eye to another every 2 hours. (3) Hyperreflexia Comment: - As per Neuro it's improved after the LP, related to the increase in ICP. No evidence of demyelinating or vasculitis process in the C or T spine. (4) Granulomatosis with polyangiitis Comment: - Rheumatology consult requested with Dr. Em. (5) DVT prophylaxis Comment: - Encourage ambulation. - SCDs while in bed. (6) Full code status Status and Disposition: Inpatient.
--- NOTE | 2018-07-19 18:19 | CONSULT ---
Consult Consult: Ms. 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 She presented with a 2 month history of headaches as welll as recent diplopia and a cranial nerve palsy with pleocytosis lymphocyte predominant on CSF studies. At this point, etiology and trigger of her symptoms is unclear. She may have an atypical manifestation of her underlying GPA (which may be a rare initial manifestation per literature). Reversible cerebral vasoconstriction syndrome and primary angiitis of the central nervous system could be considered, but seem less likely. She is immunocompromised from Ritixumab therapy, but no infectious etiology has been found yet. Her CSF cryptococcal studies is pending. If an infectious etiology is ruled out , consider trial of Prednisone at 60mg daily with a gradual taper. Pulse steroids could be also considered per neurology; she however would very much like to go home to [place]. From my perspective, it is okay to discharge her, but she needs very close follow up with rheumatology and neurology. 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 Her ANCA was negative on 04/10
[2018-07-19] MEDS: Sertraline* 100 MG TAB PO SCH (21:45)
--- NOTE | 2018-07-19 21:54 | CONS ---
CONSULTATION REPORT: DATE OF CONSULT: 07/19/18 REASON FOR CONSULT: Meningitis, evaluate from autoimmune etiology and history of Marian. HISTORY OF PRESENT ILLNESS: MS. Moran is a pleasant 22-year-old woman with a longstanding history of granulomatosis with polyangiitis. She has been treated with us while she has been a student at [employer] with rituximab therapy. In terms of her prior rheumatologic history, she has been followed by me since September of 2016 and has been treated with Rituximab. Her initial symptoms in terms of Marian's had included right-sided infiltrates on a chest x-ray, which was refractory to outpatient antibiotics. However, she did have a ultimately a bronchoscopy, which revealed granulomatous changes and elevated ANCA consistent with Marian's. She did also have possible ocular involvement and she had been treated with prednisone a that time. She was treated with prednisone specifically at 40 mg daily in 2016. She also follows up with rheumatology at [place]. There is a possible history of underlying remote history of colitis as well, which manifested in December of 2014. In terms of her more recent symptoms, she was seen by me in March of 2018, when she presented with diffuse musculoskeletal joint pain without any joint swelling. At that time, her ANCA was negative, and she received short course of a Medrol Dosepak feeling that it was an underlying inflammatory type process. At that time, her inflammatory markers were not elevated and this was on April 19 of this year. She did have x-rays at that time of her cervical spine and lumbar spine as well as thoracic spine. She did have mild curvature in these regions but otherwise it was normal. She did receive a final dose of rituximab as well and this was done in April, specifically she received a rituximab IV therapy. More recently; however, she has been having some headaches. It has been refractory to a short Medrol Dosepak and it has progressed over the last 8 weeks. She had been on control pills, but has been holding these over the last couple of weeks as well. She had seen her freight rate clerk who recognized papilledema and she was advised to go urgently to the emergency room because of these findings. Specifically, she had 7 weeks of severe debilitating headaches and symptomatically she continues to have headaches, but she has also had diplopia as noted above. An MRI was done, which was unremarkable, but the spinal fluid revealed 115 white cells, 88% lymphocytes with a protein of 102 and a glucose of 40. Gram stain showed no organisms. She was seen by Infectious Disease and it was felt that despite being immuno-compromised from underlying rituximab therapy, an infectious etiology was felt to be unlikely. She had negative lyme antibody about a moot-dao-m-half prior to admission, and she has had no other signs or symptoms of an underlying infectious etiology. She has had a CSF cryptococcal antigen, hepatic viral PCR, and Infectious Disease added an enterovirus PCR, and antibiotics were being held at this point in time. She also had, as noted above, a brain MRI, which was unremarkable and otherwise normal but there was a question of a thrombus in the left transverse sinus. The remainder of sinuses were normal. It may have been actual asymmetry; however. She also had a cervical and thoracic MRI during the hospital stay as well too. In terms of her symptomatic history, she had the headache as noted above over the last 6 to 8 weeks. It has progressed to the point that it is just getting difficult to get out of bed. However, she had no fever, chills or sweats. Her weight has been steady. She has been able to partially complete some of the exams at [employer], but has not been able to complete all of her exams given her underlying illness. She had a negative brain imaging study otherwise except for that noted above and she has normal C-reactive protein. She has had no fevers while being admitted and no fevers while hospitalized and otherwise she is feeling well and actually wanting to go closer to home. She has been walking hallways but continues to have some double vision and now has a patch on. She tolerated the lumbar puncture and although is painful, she does not have any post injection type of worsening headaches. In fact, her headache has little bit eased right at this point in time. PAST MEDICAL HISTORY: Includes, 1. Granulomatosis with polyangiitis with primary pulmonary involvement treated with rituximab. 2. She has also had a branchial cyst in the right neck, excised in 2013. 3. History of anxiety. PAST SURGICAL HISTORY: Include a lymph node drainage in 1998. She also had a brachial cleft cyst removal from her neck. MEDICATIONS: Include, 1. Tylenol. 2. Acetazolamide. 3. Cholecalciferol. 4. Calcium. 5. Vitamin D. 6. Lactobacillus. 7. Melatonin. 8. Sertraline. She has also been placed on acyclovir as well. ALLERGIES: No known drug allergies. FAMILY HISTORY: No recurrent infections. There is a brother with Babesia. Family history is also notable for colitis. SOCIAL HISTORY: She is from [place] [facility] [place] [facility] [place]. She lived in [place] as a high school student. 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 She has had no recent sick contacts and no pets, no birds. She had been at a summer camp recently in [facility], which she did well with and had no tick bites as well. She does not spend much time outdoors otherwise and has been otherwise feeling well. I spoke to her mother who also confirmed this as well. She has never smoked, she denies any alcohol use. She exercises rarely. She still has some fatigue with daily activities, but has been doing fairly well until recently. REVIEW OF SYSTEMS: Neurologic Review of Systems: She has had headache as well as double vision. Musculoskeletal: Denies joint swelling or pain. Skin: Denies rash. Lymph: Denies lymph node swelling. Pulmonary: Denies acute shortness of breath. Cardiac: Denies chest wall pain. Genitourinary: Denied blood in the urine or stool or costovertebral angle discomfort. Other 14-point review of systems were reviewed and were otherwise negative. PHYSICAL EXAM: She is afebrile. She has no new complaints, but she does have persistent diplopia which is somewhat improved. Denies nausea or vomiting. Her pulse rate is 72. Blood pressure is 109 to 99/50 to 70. General: She is pleasant, sitting up in no acute distress. She had a patch over the right eye. Her mother was present, who I conversed with. Eyes: No scleral icterus. Ears , nose, mouth and throat were within normal limits. Mucous membranes were moist. Neck: Trachea was midline. Lymph: No adenopathy. : No CVA tenderness. Respiratory: Symmetric chest expansion, respiratory effort was normal and clear to auscultation. Cardiovascular exam revealed a normal breath sounds and normal S1, S2. No murmurs, rubs or gallops. No JVP elevation. Regular rate and rhythm. Neurologic: Alert and oriented. Normal muscle strength and tone. No focal neurologic deficits. She does complain of diplopia. On musculoskeletal exam, there is no synovitis. Endocrine: No glandular swelling. DIAGNOSTIC STUDIES/LAB DATA: She had a BUN of 19, creatinine 0.6, hemoglobin of 13.3, hematocrit of 39,000. MRI of the brain and orbits with and without contrast revealed no acute intracranial abnormalities. There is no evidence of cortical T2 hyperintensities on the MRI. An MRI of the cervical spine and T- spine with and without contrast showed no evidence of any demyelinating process. ASSESSMENT: 1. She is a 22-year-old woman with a longstanding history of granulomatosis with polyangiitis who presents with a 2-month history of headaches with recent diplopia and cranial nerve palsy. There was some transient gait abnormalities as well. Her diagnostic studies were remarkable for pleocytosis lymphocyte predominant and elevated protein and a slightly elevated opening pressure. At this point in time, it seems that an infectious etiology is unlikely, but I think believe we are at this point still awaiting on final studies from the CSF including the cryptococcal studies and the viral studies that were ordered by Infectious Disease. Underlying Marian's could be considered and indeed this has been described rarely in some case reports as an initial manifestation of Marian's. Also consider a reversible cerebral vasoconstriction syndrome. BALANCE WHEEL HAND FILER vasculitis also seems unlikely. I agree with checking an ANCA as well as autoimmune evaluation and following up the cryptococcal antigen, final CSF cultures and HSV PCR. Her acyclovir was discontinued and she was continued on acetazolamide 250 mg twice daily. If her infectious diseases' workup is negative, she could either consider pulse dose steroids or a trial of prednisone at 60 mg daily prior as she would like to go home soon; a gradual taper of steroids could be considered. This will be done if an infectious etiology is completely excluded. I would also like to see what her ANCA is showing too. 2. History of granulomatosis with polyangiitis: She is interested in going home to [place] in possible. She will continue acetazolamide per Neurology and consider a trial of prednisone if the workup is negative. 3. History of diplopia: Per Neurology, she has had some hyperreflexia which has improved after the lumbar puncture and a cranial nerve palsy, especially the right trochlear nerve, which may improve as does her underlying condition improves. We will probably hold off on control pills at this point in time, although it is not clear what precipitated this. We will continue to follow. [id number]/[facility] #: [id number] [facility]
[2018-07-20] MEDS: acetaZOLAMIDE TAB* 250 MG PO SCH (07:56)
[2018-07-20] MEDS: Lactobacillus Acidophilus* 1 TAB PO SCH (07:56)
[2018-07-20] MEDS: Docusate CAP* 100 MG PO SCH (07:56)
[2018-07-20] MEDS: Cholecalciferol TAB* 1000 UNITS PO SCH (07:56)
[2018-07-20] MEDS: Calcium/Vitamin D TAB 250/125* TAB PO SCH (07:56)
[2018-07-20] MEDS: Acetaminophen TAB* 325 MG PO PRN (07:56)
--- NOTE | 2018-07-20 09:35 | PN ---
Subjective Date of Service: 07/20/18 Length of Stay: 3 Days Neurology is following Denis for the evaluation and management of headache, double vision, and gait imbalance. Interval History: She continues to have mild headache, bifrontal, constant, non-radiating dull pain which is 2-3/10 in severity. Tylenol has been helpful. She still has binocular, vertical diplopia that resolves with one eye closure. The diplopia is worse when she looks down and out and she has a head tilt towards the left. The tilt may be chronic. She denied any skin rash, shortness of breath, or cough. Review of Systems: Denied CP, SOB, or palpitations. Family History: Unchanged from Admission Social History: Unchanged from Admission Past Medical History: Unchanged from Admission Objective Active Medications: Acetaminophen (Tylenol Tab*) 650 mg PO Q6H PRN PRN Reason: HEADACHE/PAIN Last Admin: 07/20/18 07:56 Dose: 650 mg Acetazolamide (Diamox Tab*) 250 mg PO BID [facility] Last Admin: 07/20/18 07:56 Dose: 250 mg Calcium/Vitamin D (Oscal D Tab 250/125*) 1 tab PO DAILY [facility] Last Admin: 07/20/18 07:56 Dose: 1 tab Cholecalciferol (Vitamin D Tab*) 2,000 units PO DAILY [facility] Last Admin: 07/20/18 07:56 Dose: 2,000 units Docusate Sodium (Colace Cap*) 100 mg PO DAILY [facility] Last Admin: 07/20/18 07:56 Dose: 100 mg Lactobacillus Rhamnosus (Lactobacillus Acidophilus*) 1 tab PO TID [facility] Last Admin: 07/20/18 07:56 Dose: 1 tab Melatonin (Melatonin) 3 mg PO BEDTIME PRN; Protocol PRN Reason: SLEEP Stop: 07/20/18 20:00 Sertraline HCl (Zoloft*) 100 mg PO BEDTIME [facility] Last Admin: 07/19/18 21:45 Dose: 100 mg Vital Signs 07/19/18 07/19/18 07/19/18 11:44 15:44 19:48 Temperature 98.6 F 98.0 F Pulse Rate 72 74 Respiratory 16 18 18 Rate Blood Pressure 109/70 99/50 (mmHg) O2 Sat by Pulse 99 100 Oximetry 07/19/18 07/19/18 07/20/18 20:17 23:06 03:30 Temperature 98.5 F 99.7 F 97.9 F Pulse Rate 83 73 83 Respiratory 18 18 18 Rate Blood Pressure 115/67 101/58 112/69 (mmHg) O2 Sat by Pulse 100 99 98 Oximetry Intake and Output Last 24 Hours 07/18/18 07/19/18 07/20/18 07/21/18 06:59 06:59 06:59 06:59 Intake Total 495 1020 2080 Output Total 300 Balance 195 1020 2080 Weight 130 lb 130 lb Intake: IV Fluids 15 60 NS (0.9%) 15 acyclovir 60 IVPB 320 acyclovir 200 Oral [id number] Output: Urine 300 Other: Estimated Void Large Large # Bowel Movements 0 0 # Voids 0 2 Oxygen Devices in Use Now: None Neurology Exam: General: Well nourished and well appearing young female in no acute distress. HEENT: Normocephalic/atraumatic, sclera anicteric, mucous membranes moist Neck: Supple Chest: Clear to auscultation bilaterally Extremities: No clubbing, cyanosis, or edema Neurological Findings: Awake and oriented to self, place, and time. Speech: fluent without dysrhythmia, repetition intact Cranial Nerve: PERRL, EOM-I. Increase vertical diplopia when eyes are down and out R>L. She has a mild head tilt towards the left. Motor: s/s throughout, proximal and distal extremities x4 tone/bulk normal Sensation: intact to LT/PP bilaterally upper and lower extremities Deep Tendon Reflex: 2+ symmetric in the upper/lower extremities, Babinski - down going Finger to nose, rapid alternating movements intact without tremor, no dysdiadochokinesia Gait: slight staggering gait, swaying towards the right and left. Mild spastic gait. Result Diagrams: 07/18/18 05:58 07/18/18 05:58 Additional Lab and Data: Laboratory Results - last 24 hr 07/18/18 07/18/18 10:00 10:21 Fluid Cell Count Rvw By Ser Oligoclonal Bands 0 CSF Oligoclonal Bands 0 Oligoclonal Prot Interp 0 CSF VDRL Negative CSF Cryptococcus Ag Negative CSF HSV I (PCR) Negative CSF Herpes II DNA (PCR) Negative Microbiology and Other Data: Microbiology 07/17/18 19:50 Urine Culture - Final Urine Strep Group B 07/18/18 10:00 CSF Gram Stain (Tube 3) - Final Cerebral Spinal Fluid CSF Culture - Preliminary No Growth Day 1 Diagnostic Imaging: MRI brain/orbits with and without contrast- no acute intracranial abnormalities. There is no evidence of cortical T2-hyperintensities on MRI to suggest moderate-large vessel vasculitic disease. MRI C and T spine with and without contrast- no evidence of demyelinating lesions. MRV head - discussed the case with Dr. Molina. 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 EKG Data: ekg ns no acute st t changes seen Assessment/Plan Denis Moran is a 22-year-old female with granulomatosis with polyangiitis who presented with an 8 week history of headaches with recent associated symptoms of gait imbalance and recent diplopia (started last Tuesday). She was found to have an elevated opening CSF pressure with lymphocytic predominant pleocytosis with elevated protein. 1. Progressive chronic meningitis Clinically, she does not appear to have evidence of any chronic infectious etiology causing the meningitis. The concern here is [employer] APPLIANCE TECH manifestation of Marian's granulomatosis. This would be a diagnosis of exclusion since she does not seem to have any systemic manifestation at this time. Recommendations: - Discussed the case with Dr. Em today who agrees that her symptoms may be a manifestation of Ignacia's. - Discussed starting her on Prednisone [address] Em and Maricruz agree with the treatment. However, Denis and Mrs. Moran would like to consult with Dr. Luong before proceeding with steroids. I have put out a call for Dr. Luong on 930 a.m. today. Waiting on a call back. However, the patient can be discharged from the neurology standpoint. I did inform Denis and Mrs. Moran that if this turns out to be vasculitis related to [place]'s, Denis is at risk of developing worsening headache, double vision, and other neurological problems. I informed them that if she does have any new symptoms to immediately go to the nearest ER for further evaluation. - Obtaining CTAs will unlikely be negative given that she has no T2- hyperintensity on MRI to suggest a cortical involvement and any small vessel ischemia will not be seen on this imaging modality, or even with cerebral angiogram. - Pending ANCA vasculitis panel - Discontinued acyclovir yesterday with the recommendation of Dr. Squires as we don't suspect she has HSV encephalitis. - Continue acetazolamide 250 mg twice daily for elevated intracranial pressure. - Important to repeat an MRV head with contrast for follow-up to assess for any cerebral venous thrombosis vs collapsed vessel related to elevated ICP. Her clinical history of headaches, that have not worsened is inconsistent with CVT. 2. 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 She also has head tilt towards the contralateral side. These are features of 4th nerve palsy which is most likely caused by pressure vs vasculitis process to the nerve. We don't have eye patch. She will obtain one once she is discharged. 3. Hyperreflexia- improved after the LP. This was related to the increase in ICP. There is no evidence of demyelinating or vasculitis process in the C or T spine. 4. Hx of Granulomatosis with polyangiitis- pending further evaluation by Dr. Em. The patient and mother would like to go home and complete this work-up in [place] if possible. I informed the family that this will depend on the assessment by Dr. Em, but I don't see any objectives from the neurology standpoint. She would need to continue taking acetazolamide 250 mg twice daily. Time spent: 40 minutes reviewing the records, examining the patient, and discussing the treatment plan and recommendation as mentioned above. With the agreement of Denis, I sat with Moran and reviewed all the laboratory data and the imaging reports with her personally and answered all her questions.
[2018-07-20] MEDS ORDERED: acetaZOLAMIDE TAB* 250 MG PO ONE (11:32)
[2018-07-20 11:40] VITALS: BP 128/68
[2018-07-20 22:03] LABS: Lyme Disease Source CSF
--- NOTE | 2018-07-21 02:33 | DS ---
CC: Dr. Rodriguez Luong, [facility], phone number [phone], [facility] ; Dr. Idania Mcwilliams, fax number [phone]; Dr. Jt Webber, [facility] ; Dr. Campos; Dominique Em; Dr. Caraballo * DISCHARGE SUMMARY: DATE OF ADMISSION: 07/17/18 DATE OF DISCHARGE: 07/20/18 FUSE CUP EXPANDER: Dr. Rodriguez Luong. NEUROLOGIST: Dr. Idania Mcwilliams. PRIMARY CARE PROVIDER: Dr. Jt Webber, [facility]. CONSULTING NEUROLOGIST: Dr. Campos. CONSULTING FUSE CUP EXPANDER: Dominique Em. CONSULTING INFECTIOUS DISEASE SPECIALIST: Dr. Caraballo. DISCHARGE DIAGNOSES: 1. 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 2. 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 3. Hyperreflexia. 4. Elevated intracranial pressure. SECONDARY DIAGNOSES: 1. History of granulomatosis with polyangiitis. 2. Anxiety. 3. Constipation. MEDICATIONS AT THE TIME OF TRANSFER: 1. Colace 100 mg p.o. daily. 2. Calcium plus vitamin D three tablets p.o. daily. 3. Omeprazole 20 mg p.o. daily. 4. Cholecalciferol 2000 units p.o. daily. 4. Sertraline 100 mg p.o. daily. 5. Probiotics 1 tablet p.o. t.i.d. New medications: 1. Prednisone 60 mg p.o. daily. 2. Acetazolamide 250 mg p.o. b.i.d. HOSPITAL COURSE: Ms. Moran is a 22-year-old lady with a past medical history as stated above, college student of [employer], who completed treatment with Rituxan in April 2018, who presented to the emergency room with complaints of headache and double vision. She has had symptoms at least since May of progressive headache associated with photophobia and nausea. Those symptoms have progressed to the point that she was feeling off balance including while walking a straight line. On 07/16/18, the patient developed binocular vertical diplopia that resolved with one eye closure to the point that she had to take a genetic test with one eye closed the whole time. As per Neurology report, the patient saw her neurologist a couple of months ago in [place]. At that time, the workup included MRI of the brain and the orbits without contrast that did not reveal any focal mass lesions or abnormalities. The day prior to admission, she had seen Dr. Chris Munoz and he had described bilateral mild papilledema. Workup in the emergency room included an MRI of the head that showed normal anatomic asymmetry versus thrombus on the left transverse sinus. Remaining dural sinuses were normal. 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 The patient had lumbar puncture performed and the fluid revealed 115 wbc's, 3 rbc's with 88% lymphocytes and total protein of 102 and normal glucose of 40. The patient was seen in consultation by Neurology (Dr. Campos) and his initial impression was that the patient presented with intracranial hypertension as a bedside lumbar puncture performed revealed an opening pressure of 43. His differential diagnosis included transverse sinus thrombosis, pseudotumor cerebri, but as her CSF analysis returned, he felt the patient had chronic meningitis (infectious in nature) or underlying vasculitis secondary to her granulomatosis with polyangiitis. The patient was started empirically on acyclovir and multiple CSF tests including cryptococcus antigen, enterovirus, VDRL, and DARELL level were sent. As she also had hyperreflexia on the physical examination, he recommended an MRI of the cervical and thoracic spine that showed normal pre- and post-contrast cervical spine MRI as well as normal pre- and post-contrast thoracic spine MRI. The patient was seen in consultation by Infectious Disease (Dr. Caraballo) and he felt that her 7 weeks of symptoms associated with MRI and CSF fluid findings were less likely to represent infectious etiology and most likely related to her granulomatosis with polyangiitis. His recommendation was to stop acyclovir. He recommended further testing on the CSF including herpes virus PCR , enterovirus PCR, Lyme serology, and he also recommended Rheumatology followup. The results we have available back so far on the CSF, oligoclonal bands were negative. VDRL cryptococcus antigen, herpes virus 1 and 2 are all negative. DARELL level in the CSF is pending. Her PR3 was positive at 0.5, myeloperoxidase antibody was less than 0.2 but C- and P-ANCA antibodies are still pending as well as Lyme serology and cryptococcus antigen in the serum. CSF, the Gram stain showed no organism and the preliminary result shows no growth so far. The patient was seen in consultation by Dr. Em and his impression is that the patient is a 22-year-old woman with a long-standing history of granulomatosis with polyangiitis, who presented with a 2-month history of headache with recent diplopia and cranial nerve palsy. There were some transient gait abnormalities as well. Diagnostic studies were remarkable for pleocytosis, lymphocyte predominant and elevated protein, and a slightly elevated opening pressure. At this point, it seems that an infectious etiology is unlikely and underlying Marian's could be considered and indeed this has been described rarely in some case reports as an initial manifestation of Marian's. If her infectious disease workup is negative, she could either consider pulse dose steroid or a trial of prednisone at 60 mg daily with a gradual taper. Other studies pending at the time of this dictation include encephalitis panel sent to the state department, tick-borne disease antibodies, and all these results need to be followed as outpatient. Dr. Campos discussed the case with myself, Dr. Caraballo, Dr. 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 This would be a diagnosis of exclusion since she does not seem to have any other systemic manifestation at this time. The recommendation was to start prednisone 60 mg daily, but the patient and her mother would like to consult with her pcb designer, Dr. Luong, before proceeding with steroids. Dr. Campos did call Dr. Luong and by the time of discharge, a call back had not yet been received. He felt that the patient could be discharged home from a Neurology standpoint and he informed the patient and her mother that if this turned out to be vasculitis related to Marian's, the patient is at risk of developing worsening headache, double vision, and other neurological problems. They were educated that if she does have any new symptoms, she should immediately go to the nearest ED for further evaluation. Obtaining CTAs will likely be negative given that she has no T2 hyperintensity on MRI to suggest a cortical involvement and any small vessel ischemia will not be seen on this imaging modality or even with cerebral angiogram. He also recommended continuation of acetazolamide for elevated intracranial pressure, and he feels that it is important to repeat an MRV of the head with contrast for followup to assess for any cerebral venous thrombosis versus collapsed vessel related to elevated ICP. Her clinical history of headaches that have now worsened is inconsistent with CVT (cerebral vein thrombosis). For her cranial nerve palsy, most likely right trochlear nerve palsy. The patient has double vision which is worse when looking down and out on the right. She also has head tilt towards the contralateral side. These are features of fourth nerve palsy which is most likely caused by pressure versus vasculitis process to the nerve and Dr. Campos' s recommendation was for alternating eye patch. For her hyperreflexia, this improved after the LP and it was likely related to increase in ICP. There is no evidence of demyelinating or vasculitis process in either cervical or thoracic spine. The patient and her mother would like the patient to be discharged home today and she already has appointments scheduled for 07/24/18 and 07/25/18 with her neurologist and her pcb designer. She received prescriptions for acetazolamide and prednisone, but the patient's mother will continue to try and reach Dr. Luong before starting the prednisone. The patient is medically stable for discharge at this time, but she will need close followup as outpatient. PHYSICAL EXAMINATION: Vital signs: Temperature 97.3, heart rate is 78, respiratory rate is 16, oxygen saturation 100% on room air, blood pressure is 128/68. General: The patient is a young lady, sitting up in bed, in no acute distress. Neuro: She is alert and oriented x3, able to move all 4 extremities. DIET: Regular diet. ACTIVITIES: As tolerated. DISPOSITION: To home. STATUS WHILE IN THE HOSPITAL: Inpatient. Please note that the patient's control pill had already been discontinued prior to this admission. Please keep in mind this is a summarized version of this patient's very complex medical history. If you need more information, please feel free to call me at [phone] or please obtain the full medical records. TIME SPENT: Approximately 50 minutes was spent to complete this discharge. [id number]/CPS #: [id number] SOCO
--- NOTE | 2018-07-21 08:55 | PN ---
Progress Note - Progress Note Date of Service: 07/21/18 SOAP: I spoke with Mrs. Moran this morning at 0852 (07/21/2018). Denis was sleeping this morning as she had a long day yesterday driving home. Mrs. Moran got in touch with Dr. Luong who recommended against steroids until Denis is seen at his office. She has an appointment this upcoming Tuesday07/25/2018. Denis also has an appointment with her neurologist on 07/24/2018. I updated Mrs. Moran regarding the PR3 results. I also informed her that Denis should be on steroids until she sees Dr. Luong. Mrs. Moran opted to hold off on any further treatment until the evaluation with Dr. Luong. I reiterated the importance of seeking medical attention immediately if Denis develops new neurological deficits (e.g., headache, weakness, paresthesia, or visual disturbance). Mrs. Moran verbalized understanding.
== END 2018-07-20 12:25 | disposition home or self-care (01) | DRG 50 ==
LOC: ED 17:19 → MED 19:24 → OBSVTOIN 07-18 16:54
PROVIDERS: ADMIT Internal Medicine; ATTEND Surgery
PROC: 009U3ZX Drainage of Spinal Canal, Percutaneous Approach, Diagnostic (ICD-10-PCS; principal; 2018-07-18)
DX: G03.1 Chronic meningitis (principal); H47.10 Unspecified papilledema; M31.30 Wegener's granulomatosis without renal involvement; M30.0 Polyarteritis nodosa; I67.6 Nonpyogenic thrombosis of intracranial venous system; H53.2 Diplopia; G89.29 Other chronic pain; F41.9 Anxiety disorder, unspecified; L92.8 Other granulomatous disorders of the skin and subcutaneous tissue; H49.11 Fourth [trochlear] nerve palsy, right eye; R29.2 Abnormal reflex; H40.059 Ocular hypertension, unspecified eye; K59.00 Constipation, unspecified; Z79.52 Long term (current) use of systemic steroids; G93.2 Benign intracranial hypertension
CPT/HCPCS: 36415; 70543; 70544; 72156; 72157; 80048; 80053; 80061; 81003; 81015; 82164; 82607; 82945; 83516; 83916; 84157; 84443; 84702; 85025; 85027; 85610; 85652; 86038; 86140; 86200; 86255; 86592; 86618; 86644; 86645; 86666; 86753; 87070; 87077; 87086; 87205; 87252; 87476; 87529; 87798; 87899; 88112; 88184; 88185; 88187; 88188; 88189; 89051; 99282; A9270-GY; A9579; G0378; J0133